=== PATIENT | male | born 1995 | race Caucasian/White ===

== ENCOUNTER 2018-08-18 11:04 | Emergency (ER) | payer BC, OTHER ==
[~2018-08-18] VITALS: Ht 182.9 cm; Wt 88.5 kg
[~2018-08-18 11:04] MED LIST: ADDERALL 20 MG20 MG PO; ADDERALL 30 MG30 MG PO; AMOXICILLIN875 MG PO; ASPIRIN CHEW81 MG PO; PLAVIX75 MG PO
--- OUTSIDE RECORDS SUMMARY | 2018-08-18 11:07 | XMS REPORT | Summary of Care ---
Author Author [facility] Organization [facility] Address Unknown Phone Unavailable Encounter REGINALD Youngblood(JOVANNA) [id number] Date(s): 03/15/17 - 03/16/17 [facility] [address] [facility] Services provided by [facility] [employer] [facility] [place] [address]- Discharge Disposition: Home or Self Care Attending Physician: Derek Watters MD Admitting Physician: Derek Watters MD Referring Physician: Derek Watters MD Vital Signs 1 2 3 Most recent to oldest [Reference Range]: 182.88 cm (03/15/17 9:59 AM) Height 96.8 DegF (03/15/17 8:32 PM) 97.6 DegF (03/15/17 10:00 AM) Temperature Oral [96.4-99.1 DegF] 148/76 mmHg *HI* (03/16/17 8:30 AM) 136/77 mmHg (03/16/17 5:45 AM) 133/72 mmHg (03/16/17 3:00 AM) Blood Pressure [90-140/60-90 mmHg] 90.909 kg (03/15/17 9:59 AM) Weight 27.18 m2 (03/15/17 9:59 AM) Body Mass Index Problem List Condition Effective Dates Status Health Status Informant Cerebellar Resolved infarction(Confirmed ) PFO (patent foramen 09/01/16 Resolved ovale)(Confirmed) Allergies, Adverse Reactions, Alerts Substance Reaction Severity Status NKDA Active Medications acetaminophen 325 mg, 1 tab, Route: PO, Drug form: TAB, Q4H, Dosing Weight 90.909, kg, PRN Leigh Ann n 1-3/Temp > 100.4 F, Start date: 03/15/17 12:01:00 CDT, Duration: 30 day, Stop date: 04/14/17 12:00:00 CDT Notes: Do not exceed 4 gm/day. (Same as: Tylenol) Start Date: 03/15/17 Stop Date: 03/15/17 Status: Discontinued acetaminophen 325 mg, 1 tab, Route: PO, Drug form: TAB, Q4H, Dosing Weight 90.909, kg, PRN Leigh Ann n Score 4-6, Start date: 03/15/17 16:17:00 CDT, Duration: 30 day, Stop date: 16:16:00 CDT Notes: Do not exceed 4 gm/day. (Same as: Tylenol) Start Date: 03/15/17 Stop Date: 03/16/17 Status: Discontinued acetaminophen-codeine #3 2 tab, Route: PO, Drug Form: TAB, Dosing Weight 90.909, kg, Q4H, PRN Pain Score 6-10, Start date: 03/15/17 16:17:00 CDT, Duration: 30 day, Stop date: 04/14/17 1 6:16:00 CDT Notes: Do not exceed 4gm/day of acetaminophen. (Same as: Tylenol with Codeine # 3) Start Date: 03/15/17 Stop Date: 03/16/17 Status: Discontinued acetaminophen-codeine #3 1 tab, Route: PO, Drug Form: TAB, Dosing Weight 90.909, kg, Q4H, PRN Pain Score 4-6, Start date: 03/15/17 16:17:00 CDT, Duration: 30 day, Stop date: 04/14/17 16 :16:00 CDT Notes: Do not exceed 4gm/day of acetaminophen. (Same as: Tylenol with Codeine # 3) Start Date: 03/15/17 Stop Date: 03/16/17 Status: Discontinued acetaminophen-hydrocodone 325 mg-5 mg oral tablet 2 tab, Route: PO, Drug Form: TAB, Dosing Weight 90.909, kg, Q4H, PRN Pain Score 7-10, Start date: 03/15/17 12:01:00 CDT, Duration: 30 day, Stop date: 04/14/17 1 2:00:00 CDT Notes: (Same as: [place] 325/5) Do not exceed 4gm/day of acetaminophen. Start Date: 03/15/17 Stop Date: 03/15/17 Status: Discontinued acetaminophen-hydrocodone 325 mg-5 mg oral tablet 1 tab, Route: PO, Drug Form: TAB, Dosing Weight 90.909, kg, Q4H, PRN Pain Score 4-6, Start date: 03/15/17 12:01:00 CDT, Duration: 30 day, Stop date: 04/14/17 12 :00:00 CDT Notes: (Same as: [place] 325/5) Do not exceed 4gm/day of acetaminophen. Start Date: 03/15/17 Stop Date: 03/15/17 Status: Discontinued aspirin 81 mg, 1 tab, Route: PO, Drug form: ECTAB, Daily, Dosing Weight 90.909, kg, Star t date: 03/16/17 9:00:00 CDT, Duration: 30 day, Stop date: 04/14/17 9:00:00 CDT Notes: Do not crush or chew.(Same As: Ecotrin) Start Date: 03/16/17 Stop Date: 03/16/17 Status: Discontinued aspirin 81 mg tablet, enteric coated 81 mg, 1 tab, Route: PO, Drug form: ECTAB, Daily, Dosing Weight 90.909, kg, Star t date: 03/16/17 9:00:00 CDT, Duration: 30 day, Stop date: 04/14/17 9:00:00 CDT Notes: Do not crush or chew.(Same As: Ecotrin) Start Date: 03/16/17 Stop Date: 03/15/17 Status: Canceled clopidogrel 75 mg, 1 tab, Route: PO, Drug form: TAB, Daily, Dosing Weight 90.909, kg, Start date: 03/16/17 9:00:00 CDT, Duration: 30 day, Stop date: 04/14/17 9:00:00 CDT Notes: (Same As: Plavix) Start Date: 03/16/17 Stop Date: 03/15/17 Status: Canceled clopidogrel 75 mg, 1 tab, Route: PO, Drug form: TAB, Daily, Dosing Weight 90.909, kg, Start date: 03/16/17 9:00:00 CDT, Duration: 30 day, Stop date: 04/14/17 9:00:00 CDT Notes: (Same As: Plavix) Start Date: 03/16/17 Stop Date: 03/16/17 Status: Discontinued clopidogrel 75 mg oral tablet 75 mg, PO, Daily, # 90 tab, 1 Refill(s) Start Date: 03/15/17 Status: Ordered Lipitor 80 mg, 1 tab, Route: PO, Drug form: TAB, Bedtime, Dosing Weight 90.909, kg, Star t date: 03/15/17 21:00:00 CDT, Duration: 30 day, Stop date: 04/13/17 21:00:00 CD T Notes: Same as Lipitor Start Date: 03/15/17 Stop Date: 03/16/17 Status: Discontinued niCARdipine 40 mg/ NS 200 ml IV Soln (premix) 40 mg 40 mg, 200 mL, Rate: Titrate, Start Dose: 5 mg/hr, Titration: 2mg every 15 minut es PRN, Goal(s): maintain SBP 90 - 150 mmHg, Max Dose: 15mg/hr, Route: IV, Dosin g Weight 90.909 kg, Total Volume: 200, Start date: 03/15/17 12:01:00 CDT, Durati on: 30 day,... Notes: Same as: CardeneConcentration: (0.2 mg /1 ml ) Start Date: 03/15/17 Stop Date: 03/15/17 Status: Discontinued Sodium Chloride 0.9% (Bolus) IV 250 mL, 250 ml/hr, Infuse Over: 1 hr, Route: IV, 250, Drug form: INJ, ONCE, Dosi ng Weight 90.909 kg, Start date: 03/15/17 12:01:00 CDT, Duration: 1 doses or elva es, Stop date: 03/15/17 12:01:00 CDT Start Date: 03/15/17 Stop Date: 03/15/17 Status: Completed sodium chloride 0.9% 1000 ml INJ 750 mL 750 mL, Rate: 75 ml/hr, Infuse over: 10 hr, Route: IV, Dosing Weight 90.909 kg, Total Volume: 750, Start date: 03/15/17 12:01:00 CDT, Duration: 10 hr, Stop date : 03/15/17 22:00:00 CDT Start Date: 03/15/17 Stop Date: 03/15/17 Status: Discontinued Results BLOOD BANK RESULTS Most recent to 1 2 oldest [Reference Range]: ABO/Rh O POS *Unknown* (03/15/17 10:01 AM) Antibody Scrn Negative (03/15/17 10:01 AM) ELECTROLYTES Most recent to 1 2 oldest [Reference Range]: Sodium Lvl [135-145 140 mEq/L 142 mEq/L mEq/L] (03/16/17 2:16 AM) (03/15/17 10:01 AM) Potassium Lvl 4.1 mEq/L 4.3 mEq/L [3.5-5.1 mEq/L] (03/16/17 2:16 AM) (03/15/17 10:01 AM) Chloride Lvl [95-109 106 mEq/L 108 mEq/L mEq/L] (03/16/17 2:16 AM) (03/15/17 10:01 AM) CO2 [24-32 mEq/L] 26 mEq/L 28 mEq/L (03/16/17 2:16 AM) (03/15/17 10:01 AM) AGAP [10.0-20.0 12.1 mEq/L 10.3 mEq/L mEq/L] (03/16/17 2:16 AM) (03/15/17 10:01 AM) CHEM PANEL Most recent to 1 2 oldest [Reference Range]: Creatinine Lvl 1.15 mg/dL 1.02 mg/dL [0.50-1.40 mg/dL] (03/16/17 2:16 AM) (03/15/17 10:01 AM) eGFR 89 mL/min/1.73m2 1 103 mL/min/1.73m2 2 *NA* *NA* (03/16/17 2:16 AM) (03/15/17 10:01 AM) BUN [7-22 mg/dL] 19 mg/dL 15 mg/dL (03/16/17 2:16 AM) (03/15/17 10:01 AM) Glucose Lvl [70-99 115 mg/dL 98 mg/dL mg/dL] *HI* (03/15/17 10:01 AM) (03/16/17 2:16 AM) Calcium Lvl 8.3 mg/dL 8.5 mg/dL [8.5-10.5 mg/dL] *LOW* (03/15/17 10:01 AM) (03/16/17 2:16 AM) Phosphorus [2.5-4.5 3.7 mg/dL mg/dL] (03/15/17 10:01 AM) Magnesium Lvl 2.3 mg/dL [1.8-2.4 mg/dL] (03/15/17 10:01 AM) 1Result Comment: The eGFR is calculated using the CKD-EPI formula. In most young, healthy individuals the eGFR will be >90 mL/min/1.73m2. The eGFR declines with age. An eGFR of 60-89 may be normal in some populations, particularly the elderly, for whom the CKD-EPI formula has not been extensively validated. Use of the eGFR is not recommended in the following populations: Individuals with unstable creatinine concentrations, including patients and those with serious co-morbid conditions. Patients with extremes in muscle mass or diet. The data above are obtained from the National Kidney Disease Education Program ( NKDEP) which additionally recommends that when the eGFR is used in patients with extremes of body mass index for purposes of drug dosing, the eGFR should be mul tiplied by the estimated BMI. 2Result Comment: The eGFR is calculated using the CKD-EPI formula. In most young, healthy individuals the eGFR will be >90 mL/min/1.73m2. The eGFR declines with age. An eGFR of 60-89 may be normal in some populations, particularly the elderly, for whom the CKD-EPI formula has not been extensively validated. Use of the eGFR is not recommended in the following populations: Individuals with unstable creatinine concentrations, including patients and those with serious co-morbid conditions. Patients with extremes in muscle mass or diet. The data above are obtained from the National Kidney Disease Education Program ( NKDEP) which additionally recommends that when the eGFR is used in patients with extremes of body mass index for purposes of drug dosing, the eGFR should be mul tiplied by the estimated BMI. HEMATOLOGY Most recent to 1 2 oldest [Reference Range]: WBC [3.7-10.4 K/CMM] 6.3 K/CMM (03/15/17 10:01 AM) RBC [4.70-6.10 4.52 M/CMM M/CMM] *LOW* (03/15/17 10:01 AM) Hgb [14.0-18.0 g/dL] 13.7 g/dL *LOW* (03/15/17 10:01 AM) Hct [42.0-54.0 %] 39.4 % *LOW* (03/15/17 10:01 AM) MCV [80.0-94.0 fL] 87.2 fL (03/15/17 10:01 AM) MCH [27.0-31.0 pg] 30.3 pg (03/15/17 10:01 AM) MCHC [32.0-36.0 34.7 g/dL g/dL] (03/15/17 10:01 AM) RDW [11.5-14.5 %] 12.6 % (03/15/17 10:01 AM) Platelet [133-450 262 K/CMM K/CMM] (03/15/17 10:01 AM) MPV [7.4-10.4 fL] 7.3 fL *LOW* (03/15/17 10:01 AM) Segs [45.0-75.0 %] 49.3 % (03/15/17 10:01 AM) Lymphocytes 32.2 % [20.0-40.0 %] (03/15/17 10:01 AM) Monocytes [2.0-12.0 8.2 % %] (03/15/17 10:01 AM) Eosinophils [0.0-4.0 9.0 % %] *HI* (03/15/17 10:01 AM) Basophils [0.0-1.0 1.3 % %] *HI* (03/15/17 10:01 AM) Segs-Bands # 3.1 K/CMM [1.5-8.1 K/CMM] (03/15/17 10:01 AM) Lymphocytes # 2.0 K/CMM [1.0-5.5 K/CMM] (03/15/17 10:01 AM) Monocytes # [0.0-0.8 0.5 K/CMM K/CMM] (03/15/17 10:01 AM) Eosinophils # 0.6 K/CMM [0.0-0.5 K/CMM] *HI* (03/15/17 10:01 AM) Basophils # [0.0-0.2 0.1 K/CMM K/CMM] (03/15/17 10:01 AM) PT [12.0-14.7 14.6 seconds seconds] (03/15/17 10:01 AM) INR [0.85-1.17] 1.12 (03/15/17 10:01 AM) PTT [22.9-35.8 32.2 seconds seconds] (03/15/17 10:01 AM) Immunizations No data available for this section Procedures Procedure Date Related Diagnosis Body Site PFO - Closure of patent foramen ovale 03/15/17 [place] procedure 09/01/16 Social History Social History Type Response Alcohol Current, Frequency: 1-2 times per month. Smoking Status Never smoker; Exposure to Tobacco Smoke None; Cigarette Smoking Last 365 Days No; Reg Smoking Cessation Counseling No Assessment and Plan No data available for this section
--- OUTSIDE RECORDS SUMMARY | 2018-08-18 11:07 | XMS REPORT | Summary of Care ---
Author Author [facility] Organization [facility] Address Unknown Phone Unavailable Encounter REGINALD Youngblood(JOVANNA) [id number] Date(s): 04/14/17 - 04/14/17 [facility] [address], [address] [place] [address]- Discharge Disposition: Home or Self Care Attending Physician: Derek Watters MD Referring Physician: Derek Watters MD Vital Signs Most recent to 1 oldest [Reference Range]: Height 181.1 cm (04/14/17 3:01 PM) Temperature Oral 97.6 DegF [96.4-99.1 DegF] (04/14/17 3:01 PM) Blood Pressure 119/81 mmHg [90-140/60-90 mmHg] (04/14/17 3:01 PM) Respiratory Rate 20 BRMIN [14-20 BRMIN] (04/14/17 3:01 PM) Peripheral Pulse 80 bpm Rate [60-100 bpm] (04/14/17 3:01 PM) Weight 90.227 kg (04/14/17 3:01 PM) Body Mass Index 27.51 m2 (04/14/17 3:01 PM) Problem List Condition Effective Dates Status Health Status Informant Cerebellar Resolved infarction(Confirmed ) PFO (patent foramen 09/01/16 Resolved ovale)(Confirmed) Allergies, Adverse Reactions, Alerts Substance Reaction Severity Status NKDA Active Medications No Known Medications Results No data available for this section Immunizations No data available for this section [...]
--- OUTSIDE RECORDS SUMMARY | 2018-08-18 11:07 | XMS REPORT ---
Author Author [facility] Address Unknown Phone Unavailable Care Team Providers Care Tool Machine Set Up Operator Name Role Phone Huy JIMÉNEZ Unavailable Unavailable Problems This patient has no known problems. Allergies, Adverse Reactions, Alerts This patient has no known allergies or adverse reactions. Medications This patient has no known medications. Results Test Description Test Time Test Comments Text Results Atomic Results Result Comments CT BRAIN WO [place] [address] Patient Name: PALAK GUTIERREZ MR #: [id number] : 1995 Age/Sex: 22/M Req #: [id number] Adm Physician: Ordered by: RENO JIMÉNEZ MD Report #: [id number] Location: ER Room/Bed: Procedure: [id number] CT/CT BRAIN WO Exam Date: Exam Time: REPORT STATUS: Signed EXAMINATION: Head CT without contrast. HISTORY:Headache, dizziness. COMPARISON:CT brain from 09/09/2016. TECHNIQUE: Multidetector axial images were obtained from the foramen magnum to the vertex without contrast. The images were reconstructed using brain and bone algorithms. Thin section brain images were reformatted into coronal and sagittal planes. Intravenous contrast: None IMAGE QUALITY: Acceptable. FINDINGS: Skull/scalp: No abnormality. Parenchyma: Cortical-based hypodensity in posterior and inferior aspect of left cerebellar hemisphere with regional volume loss represents chronic encephalomalacia from prior vascular insult in PICA territory. No acute hemorrhage, mass or acute major vascular territorial infarct. Arteries: No density suggestive of thrombosis. Dural s inuses: No abnormal density suggestive of thrombosis. Ventricles: No hydrocephalus or displacement. Extra-axial spaces: No abnormal density. Brain volume: Normal for age. Craniocervical junction: No mass, Chiari malformation, or basilar invagination. Sella: No mass. Paranasal/mastoid sinuses: Mild mucosal thickening in bilateral sphenoid and ethmoid sinuses. IMPRESSION: No acute intracranial abnormality, particularly no acute hemorrhage, mass or acute major vascular territorial infarct. 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 Mild mucosal inflammatory changes in bilateral sphenoid and ethmoid sinuses. Signed by: Dr. Ansley Garcia M.D. on 09/09/2017 11:51 PM Dictated By: ANSLEY GARCIA MD 50 Transcribed By: TAWANDA on 09/09/172350 COPY TO: RENO JIMÉNEZ MD CHEST SINGLE (PORTABLE) [place] [address] Patient Name: PALAK GUTIERREZ MR #: [id number] : 1995 Age/Sex: 22/M Req #: [id number] Adm Physician: Ordered by: RENO JIMÉNEZ MD Report #: [id number] Location: ER Room/Bed: Procedure: [id number] DX/CHEST SINGLE (PORTABLE) Exam Date: Exam Time: REPORT STATUS: Signed EXAMINATION: CHEST SINGLE (PORTABLE) INDICATION: Shortness of breath COMPARISON: None FINDINGS: TUBES and LINES: None. LUNGS: Lungs are well inflated. Lungs are clear. The lung bases are not well visualized. There is no evidence of pneumonia or pulmonary edema. PLEURA: No pleural effusion or pneumothorax. HEART AND MEDIASTINUM: The cardiomediastinal silhouette is unremarkable. BONES AND SOFT TISSUES: No acute osseous lesion. Soft tissues are unremarkable. UPPER ABDOMEN: No free air under the diaphragm. IMPRESSION: No acute thoracic abnormality. Signed by: Dr. Aly Pope M.D. on 09/10/2017 12:16 AM Dictated By: ALY LEÓN MD Transcribed By: TAWANDA on 09/10/1715 COPY TO: RENO JIMÉNEZ MD
--- OUTSIDE RECORDS SUMMARY | 2018-08-18 11:07 | XMS REPORT | Summary of Care ---
Author Author [facility] Organization [facility] Address Unknown Phone Unavailable Encounter [facility] Encntr_alias(FIN) [id number] Date(s): 01/29/17 - 01/29/17 [facility] [address] [place] [phone] Discharge Disposition: Home or Self Care Attending Physician: La Miranda MD PHD Vital Signs No data available for this section Problem List Condition Effective Dates Status Health Status Informant Cerebellar Resolved infarction(Confirmed ) Allergies, Adverse Reactions, Alerts Substance Reaction Severity Status NKDA Active Medications No data available for this section Results No data available for this section Immunizations No data available for this section Procedures No data available for this section Social History Social History Type Response Alcohol Current, Frequency: 1-2 times per month. Smoking Status Never smoker; Exposure to Tobacco Smoke None; Cigarette Smoking Last 365 Days No; Reg Smoking Cessation Counseling No Assessment and Plan No data available for this section
--- OUTSIDE RECORDS SUMMARY | 2018-08-18 11:07 | XMS REPORT | Summary of Care ---
Author Author [facility] Organization [facility] Address Unknown Phone Unavailable Encounter REGINALD Youngblood(JOVANNA) [id number] Date(s): 10/08/16 - 10/08/16 [facility] [address] Professional Services provided by [facility] [employer] [facility] [place] [address]- Discharge Disposition: Home or Self Care Attending Physician: Cristopher Bruce MD Referring Physician: Cristopher Bruce MD Vital Signs Most recent to 1 oldest [Reference Range]: Height 182.88 cm (10/08/16 10:02 AM) Weight 88.636 kg (10/08/16 10:02 AM) Body Mass Index 26.5 m2 (10/08/16 10:02 AM) Problem List Condition Effective Dates Status Health Status Informant Cerebellar Resolved infarction(Confirmed ) Allergies, Adverse Reactions, Alerts Substance Reaction Severity Status NKDA Active Medications No data available for this section Results CHEM PANEL Most recent to 1 oldest [Reference Range]: eGFR 94 mL/min/1.73m2 1 *NA* (10/08/16 10:41 AM) POC Creatinine 1.1 mg/dL [0.5-1.4 mg/dL] (10/08/16 10:41 AM) 1Result Comment: The eGFR is calculated [...] be mul tiplied by the estimated BMI. Immunizations No data available for this section Procedures No data available for this section Social History Social History Type Response Alcohol Current, Frequency: 1-2 times per month. Smoking Status Never smoker; Exposure to Tobacco Smoke None; Cigarette Smoking Last 365 Days No; Reg Smoking Cessation Counseling No Assessment and Plan No data available for this section
--- OUTSIDE RECORDS SUMMARY | 2018-08-18 11:07 | XMS REPORT | Continuity of Care Document ---
Author Author Deborah heredia Organization Interface Address Unknown Phone Unavailable Problems Problem Status Onset Date Classification Date Reported Comments Source FOLLOW UP Active 03/17/2017 [facility] PFO Active 02/11/2017 [facility] CCL/PFO CLOSURE/ICE/DX: PFO Active 02/11/2017 [facility] POSSIBLE PFO CLOSURE Active 02/01/2017 [facility] R09.89 Active 10/01/2016 [facility] UNK Active 09/17/2016 [facility] PFO (<span ID="[id number]">Confirmed</span>) Resolved 09/01/2016 Problem 04/17/2017 [facility] Routine general medical examination at a health care facility Active Diagnosis 05/03/2014 [facility] ADHD Active Diagnosis 05/03/2014 [facility] Cerebellar infarction Resolved Problem 04/17/2017 [facility] Medications Medication Details Route Status Patient Instructions Ordering Provider Order Date Source aspirin 81 mg tablet, enteric coated 81 mg, 1 tab, Route: PO, Drug form: ECTAB, Daily, Dosing Weight 90.909, kg, Start date: 03/16/17 9:00:00 CDT, Duration: 30 day, Stop date: 04/14/17 9:00:00 CDTNotes: Do not crush or chew. (Same As: Ecotrin) No Longer Active 03/16/2017 [facility] clopidogrel 75 mg, 1 tab, Route: PO, Drug form: TAB, Daily, Dosing Weight 90.909, kg, Start date: 03/16/17 9:00:00 CDT, Duration: 30 day, Stop date: 04/14/17 9:00:00 CDTNotes: (Same As: Plavix) No Longer Active 03/16/2017 [facility] Aspirin 81 mg, 1 tab, Route: PO, Drug form: ECTAB, Daily, Dosing Weight 90.909, kg, Start date: 03/16/17 9:00:00 CDT, Duration: 30 day, Stop date: 04/14/17 9:00:00 CDTNotes: Do not crush or chew. (Same As: Ecotrin) Inactive 03/16/2017 [facility] Lipitor 80 mg, 1 tab, Route: PO, Drug form: TAB, Bedtime, Dosing Weight 90.909, kg, Start date: 03/15/17 21:00:00 CDT, Duration: 30 day, Stop date: 04/13/17 21:00:00 CDTNotes: Same as Lipitor No Longer Active 03/16/2017 [facility] clopidogrel 75 mg oral tablet 75 mg, PO, Daily, # 90 tab, 1 Refill(s) Active 03/15/2017 [facility] Acetaminophen 325 mg, 1 tab, Route: PO, Drug form: TAB, Q4H, Dosing Weight 90.909, kg, PRN Pain Score 4-6, Start date: 03/15/17 16:17:00 CDT, Duration: 30 day, Stop date: 04/14/17 16:16:00 CDTNotes: Do not exceed 4 gm/day. (Same as: Tylenol) No Longer Active 03/15/2017 [facility] acetaminophen-codeine #3 2 tab, Route: PO, Drug Form: TAB, Dosing Weight 90.909, kg, Q4H, PRN Pain Score 6-10, Start date: 03/15/17 16:17:00 CDT, Duration: 30 day, Stop date: 04/14/17 16:16:00 CDTNotes: Do not exceed 4gm/day of acetaminophen. (Same as: Tylenol with Codeine # 3) No Longer Active 03/15/2017 [facility] Nicardipine 40 mg, 200 mL, Rate: Titrate, Start Dose: 5 mg/hr, Titration: 2mg every 15 minutes PRN, Goal(s): maintain SBP 90 - 150 mmHg, Max Dose: 15mg/hr, Route: IV, Dosing Weight 90.909 kg, Total Volume: 200, Start date: 03/15/17 12:01:00 CDT, Duration: 30 day,...Notes: Same as: Cardene Concentration: (0.2 mg /1 ml ) Inactive 03/15/2017 [facility] Acetaminophen 325 mg, 1 tab, Route: PO, Drug form: TAB, Q4H, Dosing Weight 90.909, kg, PRN Pain 1-3/Temp > 100.4 F, Start date: 03/15/17 12:01:00 CDT, Duration: 30 day, Stop date: 04/14/17 12:00:00 CDTNotes: Do not exceed 4 gm/day. (Same as: Tylenol) Inactive 03/15/2017 [facility] Acetaminophen 325 MG / Hydrocodone Bitartrate 5 MG Oral Tablet 2 tab, Route: PO, Drug Form: TAB, Dosing Weight 90.909, kg, Q4H, PRN Pain Score 7-10, Start date: 03/15/17 12:01:00 CDT, Duration: 30 day, Stop date: 04/14/17 12:00:00 CDTNotes: (Same as: [place] 325/5) Do not exceed 4gm/day of acetaminophen. Inactive 03/15/2017 [facility] Sodium Chloride 0.154 MEQ/ML Injectable Solution 750 mL, Rate: 75 ml/hr, Infuse over: 10 hr, Route: IV, Dosing Weight 90.909 kg, Total Volume: 750, Start date: 03/15/17 12:01:00 CDT, Duration: 10 hr, Stop date: 03/15/17 22:00:00 CDT Inactive 03/15/2017 [facility] Amphetamine aspartate 5 MG / Amphetamine Sulfate 5 MG / Dextroamphetamine saccharate 5 MG / Dextroamphetamine Sulfate 5 MG Oral Tablet [Adderall] 20 mg=1 tab, PO, BID, # 60 tab, 0 Refill(s) Active 09/22/2016 [facility] Aspirin 81 mg, PO, Daily, 0 Refill(s) Active 09/22/2016 [facility] atorvastatin 80 MG Oral Tablet [Lipitor] 80 mg=1 tab, PO, Bedtime, # 30 tab, 0 Refill(s) Active 09/22/2016 [facility] Adderall 1 tablet Orally Active 20 MG Orally Once a day [facility] Allergies, Adverse Reactions, Alerts Substance Category Reaction Severity Reaction type Status Date Reported Comments Source N.K.D.A. Adverse Reaction Info Not Available Adverse Reaction Active 04/10/2014 [facility] Immunizations Immunization Date Given Site Status Last Updated Comments Source Results Order Name Results Value Reference Range Date Interpretation Comments Source CHEM PANEL Glucose Lvl 115 mg/dL 70 - 99 03/16/2017 [facility] CHEM PANEL AGAP 12.1 meq/L 10.0 - 20.0 03/16/2017 [facility] CHEM PANEL Calcium Lvl 8.3 mg/dL 8.5 - 10.5 03/16/2017 [facility] CHEM PANEL CO2 26 meq/L 24 - 32 03/16/2017 [facility] CHEM PANEL BUN 19 mg/dL 7 - 22 03/16/2017 [facility] CHEM PANEL eGFR 89 mL/min/1.73m2 03/16/2017 Result Comment: The eGFR is calculated using the [...] from the National Kidney Disease Education Program (NKDEP) which additionally recommends that when the eGFR is used in patients with extremes of body mass index for purposes of drug dosing, the eGFR should be multiplied by the estimated BMI. [facility] CHEM PANEL Creatinine Lvl 1.15 mg/dL 0.50 - 1.40 03/16/2017 [facility] CHEM PANEL Sodium Lvl 140 meq/L 135 - 145 03/16/2017 [facility] CHEM PANEL Chloride Lvl 106 meq/L 95 - 109 03/16/2017 [facility] CHEM PANEL Potassium Lvl 4.1 meq/L 3.5 - 5.1 03/16/2017 [facility] Chest 2 views DX Chest 2 views DX EXAM: XR PA AND LATERAL CHEST DATE: 03/16/2017 INDICATION: Chest pain - Status post PFO/ASD Closure, comparison is made with yesterday FINDINGS: The heart is not enlarged. An Amplatzer device is noted over the right side of the heart, presumably closing an ASD or PFO. There is no pleural effusion and no pneumothorax. The lungs are clear.. IMPRESSION: No significant interval change when compared to prior radiograph. 03/16/2017 - - Read by: Nadege Whaley MD Dictated Date/time: 03/16/17 08:36 Electronically Signed by: Nadege Whaley MD 03/16/17 08:39 FINAL REPORT [facility] BLOOD BANK RESULTS ABO/Rh O POS 03/15/2017 [facility] BLOOD BANK RESULTS Antibody Scrn Negative (03/15/17 10:01 AM) 03/15/2017 [facility] CHEM PANEL Phosphorus 3.7 mg/dL 2.5 - 4.5 03/15/2017 [facility] CHEM PANEL Magnesium Lvl 2.3 mg/dL 1.8 - 2.4 03/15/2017 [facility] ELECTROLYTES AGAP 10.3 meq/L 10.0 - 20.0 03/15/2017 [facility] ELECTROLYTES eGFR 103 mL/min/1.73m2 03/15/2017 Result Comment: The eGFR is calculated using the [...] from the National Kidney Disease Education Program (NKDEP) which additionally recommends that when the eGFR is used in patients with extremes of body mass index for purposes of drug dosing, the eGFR should be multiplied by the estimated BMI. [facility] ELECTROLYTES Calcium Lvl 8.5 mg/dL 8.5 - 10.5 03/15/2017 [facility] ELECTROLYTES CO2 28 meq/L 24 - 32 03/15/2017 [facility] ELECTROLYTES Sodium Lvl 142 meq/L 135 - 145 03/15/2017 [facility] ELECTROLYTES Potassium Lvl 4.3 meq/L 3.5 - 5.1 03/15/2017 [facility] ELECTROLYTES Chloride Lvl 108 meq/L 95 - 109 03/15/2017 [facility] ELECTROLYTES Glucose Lvl 98 mg/dL 70 - 99 03/15/2017 [facility] ELECTROLYTES BUN 15 mg/dL 7 - 22 03/15/2017 [facility] ELECTROLYTES Creatinine Lvl 1.02 mg/dL 0.50 - 1.40 03/15/2017 [facility] HEMATOLOGY Lymphocytes 32.2 % 20.0 - 40.0 03/15/2017 [facility] HEMATOLOGY Monocytes 8.2 % 2.0 - 12.0 03/15/2017 [facility] HEMATOLOGY Eosinophils 9.0 % 0.0 - 4.0 03/15/2017 [facility] HEMATOLOGY Basophils 1.3 % 0.0 - 1.0 03/15/2017 [facility] HEMATOLOGY Segs-Bands # 3.1 K/CMM 1.5 - 8.1 03/15/2017 [facility] HEMATOLOGY Lymphocytes # 2.0 K/CMM 1.0 - 5.5 03/15/2017 [facility] HEMATOLOGY Eosinophils # 0.6 K/CMM 0.0 - 0.5 03/15/2017 [facility] HEMATOLOGY Monocytes # 0.5 K/CMM 0.0 - 0.8 03/15/2017 [facility] HEMATOLOGY Basophils # 0.1 K/CMM 0.0 - 0.2 03/15/2017 [facility] HEMATOLOGY Segs 49.3 % 45.0 - 75.0 03/15/2017 [facility] HEMATOLOGY INR 1.12 0.85 - 1.17 03/15/2017 [facility] HEMATOLOGY PT 14.6 s 12.0 - 14.7 03/15/2017 [facility] HEMATOLOGY PTT 32.2 s 22.9 - 35.8 03/15/2017 [facility] HEMATOLOGY RBC 4.52 M/CMM 4.70 - 6.10 03/15/2017 [facility] HEMATOLOGY WBC 6.3 K/CMM 3.7 - 10.4 03/15/2017 [facility] HEMATOLOGY Hgb 13.7 g/dL 14.0 - 18.0 03/15/2017 [facility] HEMATOLOGY MCV 87.2 fL 80.0 - 94.0 03/15/2017 [facility] HEMATOLOGY Hct 39.4 % 42.0 - 54.0 03/15/2017 [facility] HEMATOLOGY MCHC 34.7 g/dL 32.0 - 36.0 03/15/2017 [facility] HEMATOLOGY MCH 30.3 pg 27.0 - 31.0 03/15/2017 [facility] HEMATOLOGY RDW 12.6 % 11.5 - 14.5 03/15/2017 [facility] HEMATOLOGY Platelet 262 K/CMM 133 - 450 03/15/2017 [facility] HEMATOLOGY MPV 7.3 fL 7.4 - 10.4 03/15/2017 [facility] Chest 1view DX Chest 1view DX EXAM: XR CHEST 1 VIEW DATE: 03/15/2017 12:01 PM CDT INDICATION: Arrhythmias TECHNIQUE: AP chest FINDINGS: Atrial septal occlusion device is present. Normal heart size is demonstrated. No acute pulmonary findings at this time. The costophrenic sulci are sharp. No pneumothorax is seen. IMPRESSION: No acute intrathoracic findings. Atrial septal occlusion device is present. 03/15/2017 - - Read by: Chente Hood MD Dictated Date/time: 03/15/17 15:55 Electronically Signed by: Chente Hood MD 03/15/17 15:56 FINAL REPORT [facility] Brain/Neck CTA Brain/Neck CTA EXAM: CTA BRAIN EXAM: CTA NECK DATE: 01/29/2017 9:53 AM CDT INDICATION: I63.9 Cerebral infarction, unspecified COMPARISON: None TECHNIQUE: Rapid acquisition spiral CT images of the brain and neck were obtained between the aortic arch and the cranial vertex during intravenous infusion of iodinated contrast for the purposes of CT angiography. 3-D CT angiographic images are created using MIP technique at the acquisition workstation. The source images are also presented for interpretation. IV contrast: Cc Omniscan 300 DLP: 675 mGy-cm FINDINGS: NECK CTA: Aortic arch: The great vessels originate from the aortic arch in the standard configuration. No origin stenosis is identified. The vertebral artery origins are patent bilaterally. Carotid arteries: The cervical common carotid arteries and cervical internal carotid arteries have a normal course, caliber, and contour. No hemodynamically significant stenosis of the carotid bifurcations or internal carotid arteries is present by NASCET criteria. There is no evidence of vascular injury. Vertebral arteries: The vertebral arteries have a normal course, caliber and contour. The soft tissues of the neck and other incidental structures are normal. BRAIN CTA: The anterior and posterior circulations have a normal appearance and a standard branching pattern. No branch occlusion, vascular injury, arteritis, vascular malformation or aneurysm is identified. There is normal variant anatomy. Left posterior cerebral artery is derived chiefly from the anterior circulation. The deep cerebral veins and major venous sinuses are normal. The brain parenchyma and other incidental structures are unremarkable. IMPRESSION: Normal CTA of the neck and brain. (All qualitative and quantitative assessments of carotid bifurcation and proximal internal carotid artery stenosis are made referencing the distal internal carotid artery {NASCET criteria}.) 01/29/2017 - - Read by: Philip Mena MD Dictated Date/time: 01/29/17 13:38 Electronically Signed by: Philip Mena MD 01/29/17 13:45 FINAL REPORT [facility] Pelvis w/wo contrast MRV Pelvis w/wo contrast MRV EXAM: MRA PELVIS WITH AND WITHOUT CONTRAST DATE: 01/29/2017 9:47 AM CDT INDICATION: I63.9 EMBOLIC STROKE with PFO ADDITIONAL INFORMATION: To rule out DVT. COMPARISON: None. TECHNIQUE: Multiplanar, multisequence acquisition of the abdomen both prior to and following intravenous contrast, per pelvic MRV protocol. IV contrast: 18 ml MultiHance Oral contrast: None. FINDINGS: Inferior vena cava: Patent. Right Pelvic Veins: Common Iliac: Patent. External Iliac: Patent. Internal Iliac: Patent. Right Pelvic Veins: Common Femoral: Patent. Femoral (SFV): Patent where visible. Left Pelvic Veins: Common Iliac: Patent. External Iliac: Patent. Internal Iliac: Patent. Left Pelvic Veins: Common Femoral: Patent. Femoral (SFV): Patent where visible. Other visualized pelvic structures are unremarkable. IMPRESSION: 1. No definite evidence of pelvic deep venous thrombosis. 01/29/2017 - - This report was dictated by a Vending Mechanic/Fellow. I have personally reviewed the images as well as the Resident's interpretation and agree with the findings. Read by: Yanira Monsalve MD Resident: Yanira Monsalve MD Dictated Date/time: 01/29/17 13:05 Electronically Signed by: Isaias Elizabeht MD 01/29/17 16:01 FINAL REPORT [facility] CHEM PANEL eGFR 94 mL/min/1.73m2 10/08/2016 Result Comment: The eGFR is calculated using the [...] from the National Kidney Disease Education Program (NKDEP) which additionally recommends that when the eGFR is used in patients with extremes of body mass index for purposes of drug dosing, the eGFR should be multiplied by the estimated BMI. [facility] CHEM PANEL POC Creatinine 1.1 mg/dL 0.5 - 1.4 10/08/2016 [facility] Heart w contrast CT Heart w contrast CT EXAM: CTA CHEST WITH CONTRAST DATE: 10/08/2016 10:00 AM CAP CUTTER INDICATION: Chest pain. Patient has a history of PFO by transesophageal echocardiogram. Additionally, pulmonary vein mapping was requested per ordering physician's nurse during discussion 9:00 AM 10/08/2016. COMPARISON: None TECHNIQUE: Volumetric CT acquisition of the chest according to the pulmonary vein protocol after intravenous contrast. A delayed phase CT was obtained for evaluation of the left atrial appendage. Axial, coronal, sagittal, and axial MIP reconstructions are performed at the acquisition workstation. Modified technique for evaluation for structural anomalies as well as pulmonary vein mapping performed. IV contrast: 90 mL Omnipaque 350 DLP: 946 mGy-cm FINDINGS: Pulmonary Vein Anatomy: 2 riight and 2 left pulmonary veins return to the left atrium. No anomalous pulmonary venous drainage. Measurements of the pulmonary veins are as follows: Left superior pulmonary vein: Distance: 19 mm x 12 mm Area: 1.9 cm2 Average diameter: 15 mm Perimeter: 51 mm Left inferior pulmonary vein: Distance: 18 mm x 10 mm Area: 1.3 cm2 Average diameter: 13 mm Perimeter: 46 mm Right inferior pulmonary vein: Distance: 18 mm x 17 mm Area: 2.4 cm2 Average diameter: 17 mm Perimeter: 55 mm Right superior pulmonary vein: Distance: 21 mm x 14 mm Area: 2.3 cm2 Average diameter: 17 mm Perimeter: 57 mm The esophagus comes in closest proximity to the left superior pulmonary vein . Left Atrial Appendage: No thrombus identified. Heart and Mediastinum: Normal coronary artery branching pattern is present. Right dominant coronary artery pattern. Patent coronary arteries and proximal branches. No evidence for myocardial bridging. No pericardial effusion. Transesophageal echocardiogram documented PFO not distinctly seen. Lymph Nodes: No suspicious adenopathy. Lungs: Visualized lungs clear. Bones and Soft Tissues: No acute findings. IMPRESSION: 1. Pulmonary vein anatomy and measurements are as above. 2. The PFO identified by echocardiography is not identified on this exam. MR is available for further evaluation if clinically appropriate. 3. Normal cardiac anatomy otherwise without other shunt identified on this exam. 10/08/2016 - - This report was dictated by a Vending Mechanic/Fellow. I have personally reviewed the images as well as the Resident's interpretation and agree with the findings. Read by: Rd Craig (Fellow) Resident: Rd Craig (Fellow) Dictated Date/time: 10/08/16 11:34 Electronically Signed by: Chente Hood MD 10/11/16 10:14 FINAL REPORT [facility] ELECTROLYTES AGAP 11.9 meq/L 10.0 - 20.0 09/22/2016 [facility] ELECTROLYTES eGFR 107 mL/min/1.73m2 09/22/2016 Result Comment: The eGFR is calculated using the [...] from the National Kidney Disease Education Program (NKDEP) which additionally recommends that when the eGFR is used in patients with extremes of body mass index for purposes of drug dosing, the eGFR should be multiplied by the estimated BMI. [facility] ELECTROLYTES CO2 26 meq/L 24 - 32 09/22/2016 [facility] ELECTROLYTES Chloride Lvl 106 meq/L 95 - 109 09/22/2016 [facility] ELECTROLYTES Potassium Lvl 3.9 meq/L 3.5 - 5.1 09/22/2016 [facility] ELECTROLYTES Sodium Lvl 140 meq/L 135 - 145 09/22/2016 [facility] ELECTROLYTES Calcium Lvl 8.5 mg/dL 8.5 - 10.5 09/22/2016 [facility] ELECTROLYTES Creatinine Lvl 0.99 mg/dL 0.50 - 1.40 09/22/2016 [facility] ELECTROLYTES BUN 14 mg/dL 7 - 22 09/22/2016 [facility] ELECTROLYTES Glucose Lvl 84 mg/dL 70 - 99 09/22/2016 [facility] HEMATOLOGY WBC 7.2 K/CMM 3.7 - 10.4 09/22/2016 [facility] HEMATOLOGY RBC 4.94 M/CMM 4.70 - 6.10 09/22/2016 [facility] HEMATOLOGY Platelet 303 K/CMM 133 - 450 09/22/2016 [facility] HEMATOLOGY MPV 7.4 fL 7.4 - 10.4 09/22/2016 [facility] HEMATOLOGY MCHC 35.0 g/dL 32.0 - 36.0 09/22/2016 [facility] MCH 29.7 pg 27.0 - 31.0 09/22/2016 [facility] HEMATOLOGY RDW 12.5 % 11.5 - 14.5 09/22/2016 [facility] HEMATOLOGY Hct 41.9 % 42.0 - 54.0 09/22/2016 [facility] HEMATOLOGY Hgb 14.7 g/dL 14.0 - 18.0 09/22/2016 [facility] HEMATOLOGY MCV 84.8 fL 80.0 - 94.0 09/22/2016 [facility] HEMATOLOGY Eosinophils # 0.2 K/CMM 0.0 - 0.5 09/22/2016 [facility] HEMATOLOGY Basophils # 0.1 K/CMM 0.0 - 0.2 09/22/2016 [facility] HEMATOLOGY Segs-Bands # 4.5 K/CMM 1.5 - 8.1 09/22/2016 [facility] HEMATOLOGY Lymphocytes # 1.8 K/CMM 1.0 - 5.5 09/22/2016 [facility] HEMATOLOGY Monocytes # 0.6 K/CMM 0.0 - 0.8 09/22/2016 [facility] HEMATOLOGY Lymphocytes 25.1 % 20.0 - 40.0 09/22/2016 [facility] HEMATOLOGY Segs 61.7 % 45.0 - 75.0 09/22/2016 [facility] HEMATOLOGY Monocytes 8.7 % 2.0 - 12.0 09/22/2016 [facility] HEMATOLOGY Eosinophils 3.3 % 0.0 - 4.0 09/22/2016 [facility] HEMATOLOGY Basophils 1.2 % 0.0 - 1.0 09/22/2016 [facility] Vital Signs Vital Sign Value Date Comments Source Weight 90.227 04/14/2017 [facility] BMI Calculated 27.51 04/14/2017 [facility] Height 181.1 cm 04/14/2017 [facility] Systolic (mm Hg) 119 04/14/2017 [facility] Diastolic (mm Hg) 81 04/14/2017 [facility] Temperature Oral (F) 97.6 F 04/14/2017 [facility] Respitory Rate 20 04/14/2017 [facility] Heart Rate 80 04/14/2017 [facility] Systolic (mm Hg) 148 03/16/2017 [facility] Diastolic (mm Hg) 76 03/16/2017 [facility] Systolic (mm Hg) 136 03/16/2017 [facility] Diastolic (mm Hg) 77 03/16/2017 [facility] Systolic (mm Hg) 133 03/16/2017 [facility] Diastolic (mm Hg) 72 03/16/2017 [facility] Temperature Oral (F) 96.8 F 03/16/2017 [facility] Temperature Oral (F) 97.6 F 03/15/2017 [facility] Weight 90.909 03/15/2017 [facility] BMI Calculated 27.18 03/15/2017 [facility] Height 182.88 cm 03/15/2017 [facility] Heart Rate 72 02/10/2017 [facility] Temperature Oral (F) 97.3 F 02/10/2017 [facility] Weight 90.938 02/10/2017 [facility] BMI Calculated 27.19 02/10/2017 [facility] Height 182.88 cm 02/10/2017 [facility] Systolic (mm Hg) 134 02/10/2017 [facility] Diastolic (mm Hg) 77 02/10/2017 [facility] Weight 88.636 10/08/2016 [facility] BMI Calculated 26.5 10/08/2016 [facility] Height 182.88 cm 10/08/2016 [facility] Respitory Rate 20 09/22/2016 [facility] Systolic (mm Hg) 126 09/22/2016 [facility] Diastolic (mm Hg) 73 09/22/2016 [facility] Heart Rate 70 09/22/2016 [facility] Weight 88.636 09/22/2016 [facility] BMI Calculated 26.5 09/22/2016 [facility] Height 182.88 cm 09/22/2016 [facility] Weight 88.636 09/22/2016 [facility] BMI Calculated 26.5 09/22/2016 [facility] Height 182.88 cm 09/22/2016 [facility] Weight 184 04/10/2014 [facility] Height 72 04/10/2014 [facility] Heart Rate 76 04/10/2014 [facility] Diastolic (mm Hg) 76 04/10/2014 [facility] Systolic (mm Hg) 114 04/10/2014 [facility] Encounters Location Location Details Encounter Type Encounter Number Reason For Visit Attending Provider ADM Date DC Date Status Source [facility] Physical Exam [id number] 04/10/2014 04/10/2014 [facility] [id number] Cristopher Nascimbene 09/22/2016 09/22/2016 [facility] Outpatient [id number] Cristopher Nascimbene 10/08/2016 10/09/2016 [facility] [id number] La Miranda 01/29/2017 01/30/2017 [facility] Out[facility] [id number] Derek Watters 02/10/2017 02/11/2017 [facility] Bed[facility] Outpatient [id number] Derek Watters 03/15/2017 03/16/2017 [facility] Outpatient [id number] Derekbennie Watters 04/14/2017 04/15/2017 [facility] Procedures Procedure Code Date Perfomer Comments Source PFO - Closure of patent foramen ovale [id number] 03/15/2017 [facility] [place] procedure [id number] 09/01/2016 [facility]
--- OUTSIDE RECORDS SUMMARY | 2018-08-18 11:07 | XMS REPORT | Summary of Care ---
Author Author [facility] Organization [facility] Address Unknown Phone Unavailable Encounter REGINALD Youngblood(JOVANNA) [id number] Date(s): 09/22/16 - 09/22/16 [facility] [address] [place] [address]- [phone] Discharge Disposition: Home or Self Care Attending Physician: Cristopher Bruce MD Referring Physician: Cristopher Bruce MD Vital Signs Most recent to 1 2 oldest [Reference Range]: Height 182.88 cm 182.88 cm (09/22/16 12:50 PM) (09/22/16 12:42 PM) Blood Pressure 126/73 mmHg [90-140/60-90 mmHg] (09/22/16 1:11 PM) Respiratory Rate 20 BRMIN [14-20 BRMIN] (09/22/16 1:11 PM) Peripheral Pulse 70 bpm Rate [60-100 bpm] (09/22/16 1:11 PM) Weight 88.636 kg 88.636 kg (09/22/16 12:50 PM) (09/22/16 12:42 PM) Body Mass Index 26.5 m2 26.5 m2 (09/22/16 12:50 PM) (09/22/16 12:42 PM) Problem List Condition Effective Dates Status Health Status Informant Cerebellar Resolved infarction(Confirmed ) Allergies, Adverse Reactions, Alerts Substance Reaction Severity Status NKDA Active Medications Adderall 20 mg oral tablet 20 mg=1 tab, PO, BID, # 60 tab, 0 Refill(s) Start Date: 09/22/16 Stop Date: 10/22/16 Status: Ordered aspirin 81 mg, PO, Daily, 0 Refill(s) Start Date: 09/22/16 Status: Ordered Lipitor 80 mg oral tablet 80 mg=1 tab, PO, Bedtime, # 30 tab, 0 Refill(s) Start Date: 09/22/16 Status: Ordered Results ELECTROLYTES Most recent to 1 oldest [Reference Range]: Sodium Lvl [135-145 140 mEq/L mEq/L] (09/22/16 12:45 PM) Potassium Lvl 3.9 mEq/L [3.5-5.1 mEq/L] (09/22/16 12:45 PM) Chloride Lvl [95-109 106 mEq/L mEq/L] (09/22/16 12:45 PM) CO2 [24-32 mEq/L] 26 mEq/L (09/22/16 12:45 PM) AGAP [10.0-20.0 11.9 mEq/L mEq/L] (09/22/16 12:45 PM) CHEM PANEL Most recent to 1 oldest [Reference Range]: Creatinine Lvl 0.99 mg/dL [0.50-1.40 mg/dL] (09/22/16 12:45 PM) eGFR 107 mL/min/1.73m2 1 *NA* (09/22/16 12:45 PM) BUN [7-22 mg/dL] 14 mg/dL (09/22/16 12:45 PM) Glucose Lvl [70-99 84 mg/dL mg/dL] (09/22/16 12:45 PM) Calcium Lvl 8.5 mg/dL [8.5-10.5 mg/dL] (09/22/16 12:45 PM) 1Result Comment: The eGFR is calculated using [...] estimated BMI. HEMATOLOGY Most recent to 1 oldest [Reference Range]: WBC [3.7-10.4 K/CMM] 7.2 K/CMM (09/22/16 12:45 PM) RBC [4.70-6.10 4.94 M/CMM M/CMM] (09/22/16 12:45 PM) Hgb [14.0-18.0 g/dL] 14.7 g/dL (09/22/16 12:45 PM) Hct [42.0-54.0 %] 41.9 % *LOW* (09/22/16 12:45 PM) MCV [80.0-94.0 fL] 84.8 fL (09/22/16 12:45 PM) MCH [27.0-31.0 pg] 29.7 pg (09/22/16 12:45 PM) MCHC [32.0-36.0 35.0 g/dL g/dL] (09/22/16 12:45 PM) RDW [11.5-14.5 %] 12.5 % (09/22/16 12:45 PM) Platelet [133-450 303 K/CMM K/CMM] (09/22/16 12:45 PM) MPV [7.4-10.4 fL] 7.4 fL (09/22/16 12:45 PM) Segs [45.0-75.0 %] 61.7 % (09/22/16 12:45 PM) Lymphocytes 25.1 % [20.0-40.0 %] (09/22/16 12:45 PM) Monocytes [2.0-12.0 8.7 % %] (09/22/16 12:45 PM) Eosinophils [0.0-4.0 3.3 % %] (09/22/16 12:45 PM) Basophils [0.0-1.0 1.2 % %] *HI* (09/22/16 12:45 PM) Segs-Bands # 4.5 K/CMM [1.5-8.1 K/CMM] (09/22/16 12:45 PM) Lymphocytes # 1.8 K/CMM [1.0-5.5 K/CMM] (09/22/16 12:45 PM) Monocytes # [0.0-0.8 0.6 K/CMM K/CMM] (09/22/16 12:45 PM) Eosinophils # 0.2 K/CMM [0.0-0.5 K/CMM] (09/22/16 12:45 PM) Basophils # [0.0-0.2 0.1 K/CMM K/CMM] (09/22/16 12:45 PM) Immunizations No data available for this section Procedures No data available for this section Social History Social History Type Response Alcohol Current, Frequency: 1-2 times per month. Smoking Status Never smoker; Exposure to Tobacco Smoke None; Cigarette Smoking Last 365 Days No; Reg Smoking Cessation Counseling No Assessment and Plan No data available for this section
--- OUTSIDE RECORDS SUMMARY | 2018-08-18 11:07 | XMS REPORT | Summary of Care ---
Author Author YIFAN Campo, MCKENNA Organization Unknown Address Unknown Phone Unavailable Care Team Providers Care Intelligence Specialist Name Role Phone MCKENNA SAHA M.D. 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 * Quantity: 60 Refills: 2 Active Plavix 75 MG Oral Tablet TAKE 1 TABLET BY MOUTH DAILY * Quantity: 90 Refills: 0 * Start : 22-Apr-2017 Active Allergies and Adverse Reactions Name Dates Details No Known Drug Allergies (Allergy) Status: Active Past Medical History Name Dates Details Stroke of unknown etiology (434.91, I63.9) Status: Active Procedures Procedure Dates Details Procedures not documented Immunization Name Dates Details Immunizations not documented Family History Name Dates Details Family history of cerebrovascular accident (CVA) (V17.1, Z82.3) Status: Active Name Dates Details Family history of hyperlipidemia (V18.19, Z83.49) Status: Active Family history of hypertension (V17.49, Z82.49) Status: Active Name Dates Details Family history of autism (V17.0, Z81.8) Status: Active Name Dates Details Family history of Liver problem (573.9, K76.9) Status: Active Social History Name Dates Details - Status: Name Dates Details Never smoker Vital Signs Date Test Result Details No Known Vitals to report Results Date Description Value Details Results not documented Plan of Care Name Dates Details Planned Observations Planned Goals not documented Planned Encounters Follow-up visit in 1 year Appointment; YIFAN HAWKINS On: 14-Sep-2018 11:00 Appointment; MCKENNA SAHA M.D. On: 14-Sep-2018 11:40 Interventions Provided Plan* Dr. Saha was present in the office today for supervision. Plan of care was taken from Last Clinic Note on 04/14/2017. Instructions Name Dates Details Instructions not documented Encounters Appointment; JULIAN THOMAS M.D. Encounter Diagnosis: Problem not documented On: 16-Sep-2016 10:30 Appointment; LILIANA DE LOS SANTOS Encounter Diagnosis: Problem not documented On: 16-Sep-2016 13:00 Appointment; JULIAN THOMAS M.D. Encounter Diagnosis: Problem not documented On: 05-Nov-2016 16:00 Appointment; ALAN REARDON M.D. Encounter Diagnosis: Problem not documented On: 14-Jan-2017 10:00 Appointment; ORION GOMES M.D. Encounter Diagnosis: Problem not documented On: 05-Feb-2017 10:00 Appointment; ALAN REARDON M.D. Encounter Diagnosis: Problem not documented On: 22-Apr-2017 10:00 Appointment; YIFAN HAWKINS Encounter Diagnosis: Problem not documented On: 17-Sep-2017 11:00 Appointment; MCKENNA SAHA M.D. Encounter Diagnosis: Problem not documented On: 17-Sep-2017 11:40
--- OUTSIDE RECORDS SUMMARY | 2018-08-18 11:07 | XMS REPORT ---
Author Author Dennys Boss Organization [employer] Address Unknown Phone Unavailable Care Team Providers Care Power Sweeper Operator Name Role Phone Dennys Boss CP Unavailable Allergies, Adverse Reactions, Alerts Substance Reaction Event Type N.K.D.A. Info Not Available Non Drug Allergy Encounters Encounter Location Date Physical Exam [facility] April 10, 2014 Problems Problem Type Condition ICD-9 Code Onset Dates Condition Status Assessment Routine general medical examination at a health care facility V70.0 Active Assessment ADHD (attention deficit hyperactivity disorder) 314.01 Active Problem ADHD (attention deficit hyperactivity disorder) 314.01 Active Medications Medication Code System Code Instructions Start Date End Date Status Dosage Adderall MEDISPAN [address]-49 20 MG Orally Once a day Active 1 tablet Social History Social History Element Qualifiers Date Reported Ethnicity . Status Other April 10, 2014 Tobacco Use: . Are you a: current smoker Socially April 10, 2014 Use of recreational / street drugs? . Answer: No April 10, 2014 Sexual Hx: . Had sex in the last 12 months (vaginal, oral, or anal)?: Yes, with: Women only, Use protection?: Yes, How often?: All of the time, Have you ever had an STD?: No April 10, 2014 Where or with whom do you live ? . with parents April 10, 2014 Do you have pets? . Status: Yes, Type: dog(s) April 10, 2014 Marital Status: single. April 10, 2014 Caffeine intake? . Status: Yes, What type: Soft Drinks April 10, 2014 Do you exercise? . Answer: Yes April 10, 2014 Do you drink alcohol? . Status: Yes, How often? Socially, How much? Socially April 10, 2014 Occupation: . 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, 2014 Family history Qualifier Description Comment Date Reported Maternal Grandmother alive Comment not available April 10, 2014 Paternal Grandmother unknown Comment not available April 10, 2014 Father alive Comment not available April 10, 2014 Maternal Grandfather alive Comment not available April 10, 2014 Mother alive Comment not available April 10, 2014 Paternal Grandfather unknown Comment not available April 10, 2014 Vital Signs Date/Time: April 10, 2014 Weight 184 lbs Height 72 in Cardiac Monitoring Heart Rate 76 /min Blood Pressure Diastolic 76 mm Hg Blood Pressure Systolic 114 mm Hg Results CBC (INCLUDES DIFF/PLT) ABSOLUTE LYMPHOCYTES(-850-3900 cells/uL) 1705 ABSOLUTE NEUTROPHILS(-5599-0798 cells/uL) 3487 BASOPHILS(- %) 0.6 HEMOGLOBIN(-13.2-17.1 g/dL) 13.8 EOSINOPHILS(- %) 4.6 HEMATOCRIT(-38.5-50.0 %) 41.0 MONOCYTES(- %) 6.8 MCV(-80.0-100.0 fL) 90.3 LYMPHOCYTES(- %) 28.9 MCH(-27.0-33.0 pg) 30.4 NEUTROPHILS(- %) 59.1 MCHC(-32.0-36.0 g/dL) 33.6 ABSOLUTE BASOPHILS(-0-200 cells/uL) 35 RDW(-11.0-15.0 %) 12.3 WHITE BLOOD CELL COUNT(-3.8-10.8 Thousand/uL) 5.9 PLATELET COUNT(-140-400 Thousand/uL) 251 ABSOLUTE EOSINOPHILS(-15-500 cells/uL) 271 RED BLOOD CELL COUNT(-4.20-5.80 Million/uL) 4.54 ABSOLUTE MONOCYTES(-200-950 cells/uL) 401 HEMOGLOBIN A1c HEMOGLOBIN A1c(-<5.7 % of total Hgb) 5.1 COMPREHENSIVE METABOLIC PANEL ALBUMIN/GLOBULIN RATIO(-1.0-2.5 (calc)) 2.2 GLOBULIN(-1.9-3.7 g/dL (calc)) 2.3 ALKALINE PHOSPHATASE(-40-115 U/L) 49 BILIRUBIN, TOTAL(-0.2-1.2 mg/dL) 0.6 CHLORIDE(-98-110 mmol/L) 103 ALT(-9-46 U/L) 20 POTASSIUM(-3.5-5.3 mmol/L) 4.3 AST(-10-40 U/L) 19 SODIUM(-135-146 mmol/L) 138 BUN/CREATININE RATIO(-6-22 (calc)) NOT APPLICABLE eGFR (-> OR=60 mL/min/1.73m2) 120 CALCIUM(-8.6-10.3 mg/dL) 10.0 CARBON DIOXIDE(-19-30 mmol/L) 26 ALBUMIN(-3.6-5.1 g/dL) 5.1 PROTEIN, TOTAL(-6.1-8.1 g/dL) 7.4 GLUCOSE(-65-99 mg/dL) 93 UREA NITROGEN (BUN)(-7-25 mg/dL) 9 CREATININE(-0.60-1.35 mg/dL) 1.03 eGFR NON-AFR. COLOMBIAN(-> OR=60 mL/min/1.73m2) 103 URINALYSIS, COMPLETE KETONES(-NEGATIVE ) NEGATIVE BILIRUBIN(-NEGATIVE ) NEGATIVE PROTEIN(-NEGATIVE ) NEGATIVE OCCULT BLOOD(-NEGATIVE ) NEGATIVE LEUKOCYTE ESTERASE(-NEGATIVE ) NEGATIVE WBC(-< OR=5 /HPF) NONE SEEN NITRITE(-NEGATIVE ) NEGATIVE BACTERIA(-NONE SEEN /HPF) NONE SEEN PH(-5.0-8.0 ) 7.5 HYALINE CAST(-NONE SEEN /LPF) NONE SEEN GLUCOSE(-NEGATIVE ) NEGATIVE APPEARANCE(-CLEAR ) CLEAR RBC(-< OR=3 /HPF) NONE SEEN SQUAMOUS EPITHELIAL CELLS(-< OR=5 /HPF) NONE SEEN SPECIFIC GRAVITY(-1.001-1.035 ) 1.010 COLOR(-YELLOW ) YELLOW LIPID PANEL NON HDL CHOLESTEROL(- mg/dL (calc)) 97 CHOL/HDLC RATIO(-< OR=5.0 (calc)) 3.2 LDL-CHOLESTEROL(-<130 mg/dL (calc)) 77 TRIGLYCERIDES(-<150 mg/dL) 102 HDL CHOLESTEROL(-> OR=40 mg/dL) 45 CHOLESTEROL, TOTAL(-125-200 mg/dL) 142 TSH TSH(-0.40-4.50 mIU/L) 1.73 Summary Purpose [employer] Submission
--- OUTSIDE RECORDS SUMMARY | 2018-08-18 11:07 | XMS REPORT | Summary of Care ---
Author Author [facility] Organization [facility] Address Unknown Phone Unavailable Encounter REGINALD Youngblood(JOVANNA) [id number] Date(s): 02/10/17 - 02/10/17 [facility] [address], [address] [place], [place] [address] Discharge Disposition: Home or Self Care Attending Physician: Derek Watters MD Referring Physician: Derek Watters MD Vital Signs Most recent to 1 oldest [Reference Range]: Height 182.88 cm (02/10/17 11:40 AM) Temperature Oral 97.3 DegF [96.4-99.1 DegF] (02/10/17 11:40 AM) Blood Pressure 134/77 mmHg [90-140/60-90 mmHg] (02/10/17 11:40 AM) Peripheral Pulse 72 bpm Rate [60-100 bpm] (02/10/17 11:40 AM) Weight 90.938 kg (02/10/17 11:40 AM) Body Mass Index 27.19 m2 (02/10/17 11:40 AM) Problem List Condition Effective Dates Status [...]
--- NOTE | 2018-08-18 11:46 | Diagnostic Imaging Report ---
EXAMINATION: Head CT HISTORY: Syncope, sweating, head pain, history of prior stroke. COMPARISON: Head CT on 09/09/2017 TECHNIQUE: Multidetector axial images were obtained without contrast from the foramen magnum to the vertex . The images were reconstructed using brain and bone algorithms. Thin section brain images were reformatted into coronal and sagittal planes. Image quality: Motion/streaking artifact limits the evaluation of the skull base and posterior cranial fossa. Dose modulation, iterative reconstruction, and/or weight based adjustment of the mA/kV was utilized to reduce the radiation dose to as low as reasonably achievable. FINDINGS: Parenchyma: 1. Unchanged chronic infarct in the left posterior and inferior cerebellar with regional volume loss (PICA vascular territory). 2. No mass or hemorrhage. No CT evidence of acute territorial vascular insult. Extra-axial spaces:No abnormal density. No extra-axial fluid collections Brain volume: Normal for age. Ventricles: No hydrocephalus or displacement. Arteries: No density suggestive of thrombus. Dural sinuses: No abnormal density. Extra-axial spaces: No abnormal density. Foramen magnum: No mass, Chiari malformation, or basilar invagination. Sella: No obvious mass. Paranasal/mastoid sinuses: Mild mucosal thickening and partial opacification of the partially visualized ethmoidal and sphenoid sinuses, new since prior head CT. Skull/Scalp: No lytic or blastic lesions. No fractures. IMPRESSION: 1. No acute intracranial hemorrhage or cortical infarcts. 2. Unchanged chronic left cerebellar infarct. Signed by: Dr. Padma Burris M.D. on 08/18/2018 11:42 AM
--- NOTE | 2018-08-18 12:14 | Diagnostic Imaging Report ---
EXAMINATION: CHEST 2 VIEWS INDICATION: Syncope COMPARISON: None FINDINGS: TUBES and LINES: None. LUNGS: Lungs are well inflated. Lungs are clear. There is no evidence of pneumonia or pulmonary edema. PLEURA: No pleural effusion or pneumothorax. HEART AND MEDIASTINUM: The cardiomediastinal silhouette is unremarkable. Cardiac device projects over the right posterior heart. BONES AND SOFT TISSUES: No acute osseous lesion. Soft tissues are unremarkable. UPPER ABDOMEN: No free air under the diaphragm. IMPRESSION: No acute radiographic abnormality. Signed by: Dr. Pina Roldan MD on 08/18/2018 12:10 PM
[2018-08-18 12:18] LABS: BASOPHILS % 0.5 % (0.0-1.0); EOSINOPHILS # (AUTO) 0.2 (0.0-0.4); EOSINOPHILS % 2.7 % (0.0-6.0); HEMATOCRIT 37.8 % (38.2-49.6); HEMOGLOBIN 13.1 g/dL (14.0-18.0); LYMPHOCYTES % 14.8 % (18.0-39.1); MEAN CORPUSCULAR HEMOGLOBIN 30.5 pg (28-32); MEAN CORPUSCULAR HGB CONC 34.7 g/dL (31-35); MEAN CORPUSCULAR VOLUME 87.9 fL (81-99); MONOCYTES # (AUTO) 0.8 (0.2-0.8); MONOCYTES % 11.5 % (4.4-11.3); NEUTROPHILS # (AUTO) 4.6 (2.1-6.9); NEUTROPHILS % 70.2 % (38.7-80.0); PLATELET COUNT 229 x10e3/uL (140-360); RED CELL DISTRIBUTION WIDTH 11.8 % (11.7-14.4)
[2018-08-18 12:40] LABS: ALANINE AMINOTRANSFERASE 19 IU/L (0-55); ALBUMIN 3.9 g/dL (3.5-5.0); ALBUMIN/GLOBULIN RATIO 1.3 (0.8-2.0); ALKALINE PHOSPHATASE 38 IU/L (40-150); ANION GAP 13.9 mmol/L (8-16); BLOOD UREA NITROGEN 5 mg/dL (7-26); BUN/CREATININE RATIO 6 (6-25); CALCIUM 9.4 mg/dL (8.4-10.2); CARBON DIOXIDE 26 mmol/L (22-29); CHLORIDE 102 mmol/L (98-107); CREATINE KINASE 49 IU/L (30-200); CREATININE, SERUM 0.86 mg/dL (0.72-1.25); EST GLOMERULAR FILTRATION RATE > 60 ML/MIN (60-); GLUCOSE 101 mg/dL (74-118); MAGNESIUM 2.2 MG/DL (1.3-2.1); POTASSIUM 3.9 mmol/L (3.5-5.1); SODIUM 138 mmol/L (136-145)
[2018-08-18 14:54] VITALS: BP 112/88
== END 2018-08-18 15:15 | disposition home or self-care (01) ==
LOC: ER 11:04
DX: R55 Syncope and collapse (principal); G43.109 Migraine with aura, not intractable, without status migrainosus; Z86.73 Personal history of transient ischemic attack (TIA), and cerebral infarction without residual deficits
CPT/HCPCS: 36415; 70450; 71046; 80053; 82550; 82553; 83735; 84484; 85025; 93005; 99284